=== PATIENT | male | born 1980 | race Caucasian/White ===

== ENCOUNTER 2021-10-27 11:16 | Emergency (ER) | payer OTHER ==
[2021-10-27 11:28] VITALS: TEMP 98; BMI 29.7
[2021-10-27] MEDS ORDERED: DICYCLOMINE HCL 20 MG TABLET PO ONE (11:53)
[2021-10-27] MEDS ORDERED: MAG HYDROX/AL HYDROX/SIMETH -MYLANTA- ORAL SUSPENSION PO ONE (11:54)
[2021-10-27] MEDS ORDERED: ONDANSETRON 4 MG/2 ML VIAL IVPUSH ONE (11:54)
[2021-10-27] MEDS ORDERED: FAMOTIDINE 20 MG/50 ML IVPB 20 MG/50 ML MG IVPB ONE ×2 (11:54→12:01)
[2021-10-27] MEDS ORDERED: LACTATED RINGERS SOLUTION 1000 ML INFUS.BAG IV ONE ×2 (11:54→13:40)
[2021-10-27] MEDS ORDERED: ONDANSETRON 4 MG/2 ML VIAL ONE (12:01)
[2021-10-27] MEDS ORDERED: MAG HYDROX/AL HYDROX/SIMETH 30 ML UNIT-DOSE CUP ONE (12:01)
[2021-10-27] MEDS ORDERED: DICYCLOMINE HCL 10 MG CAPSULE ONE (12:01)
[2021-10-27 12:34] LABS: BASO % 0.6 % (0-2.0); EOS % 0.5 % (0-4.5); HEMOGLOBIN 16.2 GM/dL (11.7-16.9); LYMPH % 11.7 % (8-40); MCH 27.8 pg (25.7-33.7); MCHC 33.7 g/dl (32.0-35.9); MEAN CELL VOLUME 82.6 fl (80-96); MEAN PLT VOLUME 7.7 fl (7.5-11.1); MONO % 10.3 % (3.8-10.2); NEUT % 76.9 % (42.8-82.8); PLATELET COUNT 229 10^3/uL (134-434); RBC 5.81 M/mm3 (4.00-5.60); RDW 13.9 % (11.9-15.9); WHITE BLOOD COUNT 6.5 K/mm3 (4.0-10.0)
[2021-10-27 12:58] LABS: CALCIUM 8.8 mg/dL (8.5-10.1)
[2021-10-27 12:59] LABS: ALBUMIN 4.4 g/dl (3.4-5.0); BLOOD UREA NITROGEN 21.7 mg/dL (7-18)
[2021-10-27 13:01] LABS: CREATININE 1.4 mg/dL (0.55-1.3)
[2021-10-27 13:03] LABS: BILIRUBIN,TOTAL 0.4 mg/dL (0.2-1); TOT PROT 9.1 g/dl (6.4-8.2)
[2021-10-27 15:11] VITALS: BP 127/76; PULSE 77
[2021-10-28 20:07] LABS: SARS-CoV-2 NAA Not Detected (Not Detected)
== END 2021-10-27 15:12 | disposition home or self-care (01) ==
LOC: JER 11:16
PROC: 3E033GC Introduction of Other Therapeutic Substance into Peripheral Vein, Percutaneous Approach (ICD-10-PCS; principal; 2021-10-27)
DX: R11.10 Vomiting, unspecified (principal); R19.7 Diarrhea, unspecified
CPT/HCPCS: 36415; 80053; 83690; 85025; 87804; 87807; 96365; 96375; 99284-25; C9803-CS; U0003; U0005

== ENCOUNTER 2025-03-25 11:49 | Emergency (ER) | payer OTHER ==
[2025-03-25 12:07] VITALS: BP 154/56; PULSE 67; RESP 18; TEMP 98.9
[2025-03-25] MEDS ORDERED: PSEUDOEPHEDRINE HCL 60 MG TABLET ONE (12:51)
[2025-03-25] MEDS: IBUPROFEN 600 MG TABLET (FP) PO ONE (12:55)
[2025-03-25] MEDS: PSEUDOEPHEDRINE HCL 60 MG TABLET PO ONE (12:55)
[2025-03-25] MEDS ORDERED: IBUPROFEN 600 MG TABLET (FP) PO ONE (12:56)
== END 2025-03-25 13:29 | disposition home or self-care (01) ==
LOC: JER 11:49
DX: R09.81 Nasal congestion (principal); R06.02 Shortness of breath; R51.9 Headache, unspecified
CPT/HCPCS: 87637-QW; 93005; 93010; 99284-25